=== PATIENT | male | born 1990 | race Caucasian/White ===

== ENCOUNTER 2017-02-13 21:27 | Emergency (ER) | payer OTHER ==
[~2017-02-13] VITALS: Ht 177.8 cm; Wt 90.0 kg
[2017-02-13 21:36] VITALS: Ht 177.8 cm; Wt 90.0 kg
[2017-02-13] MEDS ORDERED: ONDANSETRON (ODT) 4 MG TAB ODT STA (22:03)
[2017-02-13] MEDS ORDERED: ETOMIDATE 20 MG INJ ONE (22:09)
[2017-02-13] MEDS ORDERED: ONDANSETRON 4 MG INJ ONE (22:09)
[2017-02-13] MEDS ORDERED: morphine 10 MG INJ IM ONE (22:30)
[2017-02-13] MEDS ORDERED: ETOMIDATE 20 MG INJ IV ONE (22:30)
--- NOTE | 2017-02-13 22:55 | RADRPT ---
PROCEDURE: X-ray left ankle CLINICAL INDICATION: Injury to left ankle with dislocation. TECHNIQUE: 3 views left ankle COMPARISON: None FINDINGS: Disruption of the talocalcaneal joint with varus angulation of the calcaneus and remaining foot with respect to the ankle. IMPRESSION: 1. Varus angulation at the talocalcaneal joint secondary to joint disruption. 2. Recommend CT examination after reduction to exclude fractures. RPTAT: [facility] Physician Junior Date Time Electronically viewed and signed by Flora Ridley Physician on 02/13/2017 22:55 RS/
--- NOTE | 2017-02-13 22:59 | RADRPT ---
PROCEDURE: X-ray left ankle CLINICAL INDICATION: Reduction of disrupted talocalcaneal joint. TECHNIQUE: 2 views left ankle COMPARISON: Today, earlier in the evening FINDINGS: New splint in place. Previously seen dislocation of the talocalcaneal joint is now reduced. Recomm end CT examination to exclude fracture. No fracture is otherwise identified. IMPRESSION: Successful closed reduction of dislocated talocalcaneal joint, and recommend CT correlation. RPTAT: [facility] Physician Junior Date Time Electronically viewed and signed by Physician Junior on 02/13/2017 22:58 RS/
[2017-02-13 23:15] VITALS: TEMP 98.6
--- NOTE | 2017-02-14 00:14 | ERD ---
ER Documentation Chief Complaint Date/Time DATE: 02/14/17 TIME: 00:13 Chief Complaint left ankle pain/swelling aftera fall while playing basketball HPI 26-year-old male with left ankle pain and swelling after follow-up I am as well. Obvious deformity. Unable to weight-bear. Happened 45 minutes prior to arrival ROS All systems reviewed and are negative except as per history of present illness. Allergies Allergies: Coded Allergies: No Known Allergy (Unverified , 02/13/17) Physical Exam Vitals Vital Signs Date Time Temp Pulse Resp B/P Pulse Ox O2 Delivery O2 Flow Rate FiO2 02/13/17 22:15 100 21 02/13/17 21:36 99.1 88 20 134/80 100 Physical Exam Const: [] Head: Atraumatic Eyes: Normal Conjunctiva ENT: Normal External Ears, Nose and Mouth. Neck: Full range of motion..~ No meningismus. Resp: Clear to auscultation bilaterally Cardio: Regular rate and rhythm, no murmurs Abd: Soft, non tender, non distended. Normal bowel sounds Skin: No petechiae or rashes Back: No midline or flank tenderness Ext: No cyanosis, or edema Neur: Awake and alert Psych: Normal Mood and Affect Results 24 hrs Current Medications Medications (Trade) Dose Ordered Sig/Anastasiia Route PRN Reason Start Time Stop Time Status Last Admin Dose Admin Morphine Sulfate (morphine) 4 mg ONCE ONCE IM 02/13/17 22:30 02/13/17 22:31 DC 02/13/17 22:14 Ondansetron HCl (Zofran Odt) 4 mg ONCE STAT ODT 02/13/17 22:03 02/13/17 22:04 DC 02/13/17 22:14 Ondansetron HCl (Zofran Inj) 4 mg STK-MED ONCE .ROUTE 02/13/17 22:09 02/13/17 22:10 DC Etomidate (Amidate) 20 mg STK-MED ONCE .ROUTE 02/13/17 22:09 02/13/17 22:10 DC Etomidate (Amidate) 20 mg ONCE ONCE IV 02/13/17 22:30 02/13/17 22:31 DC 02/13/17 22:28 Procedures/MDM X-ray Ankle 3V Interpreted by me: Bones: [No fracture] Joints: Talocalcaneal dislocation Postreduction X-ray Ankle 3V Interpreted by me: Bones: [No fracture] Joints: No dislocation Medical decision-making: Patient given ankle dislocation. Reduced under conscious sedation. Placed in splint. Neurovascularly intact pre-and post procedure and splint application. Follow with orthopedics Procedural Sedation: Pre-assessment performed. See preceding complete history and physical for details. Time out performed. See sedation documentation for details. Medication(s): Etomidate Complications: No hypoxic or apneic events Recovered without incident. Greater than 15 minutes of face to face time included in sedation and recovery. Departure Diagnosis: Primary Impression: Ankle dislocation Encounter type: initial encounter Laterality: left Qualified Code: S93.05XA - Ankle dislocation, left, initial encounter Condition: Stable JADE WU Feb 14, 2017 00:14
[2017-02-14] MEDS ORDERED: IBUP800T25 PO (00:15)
[2017-02-14 00:30] VITALS: BP 138/89; PULSE 69; RESP 20
== END 2017-02-14 00:30 | disposition home or self-care (01) ==
LOC: E/R 21:27
DX: S93.05XA Dislocation of left ankle joint, initial encounter (principal); W18.39XA Other fall on same level, initial encounter; Y92.9 Unspecified place or not applicable
CPT/HCPCS: 27840; 73600; 73610; 96372; J2270; J2405; Z7502; Z7610